=== PATIENT | female | born 1950 | race Caucasian/White ===

== ENCOUNTER 2019-11-27 14:54 | Outpatient (CLI) | payer MEDICARE, OTHER, SELFPAY ==
--- NOTE | ~2019-11-27 | MM_ITS ---
EXAMINATION: MM screening spencer BI w michael HISTORY: Screening mammogram, family history of breast cancer in her sister. TECHNIQUE: Craniocaudal and mediolateral oblique 3-D tomosynthesis images were obtained and synthetic 2-D images were generated. CAD analysis was submitted and interpreted. COMPARISON: 10/09/2018, 02/13/2017 BREAST PARENCHYMAL COMPOSITION: The breasts are almost entirely fatty., 01/13/2015 FINDINGS: There is no evidence of suspicious mass, calcification, or architectural distortion to sugg est malignancy in either breast. There has been no suspicious interval change. IMPRESSION: 1. No mammographic evidence of malignancy. 2. Recommend routine screening mammography in one year. BI-RADS Category 1: Negative Reviewed, dictated and finalized at location B.
== END 2019-11-27 14:55 | disposition home or self-care (01) ==
PROVIDERS: PCP Internal Medicine; Visit Provider Obstetrics & Gynecology
DX: Z12.31 Encounter for screening mammogram for malignant neoplasm of breast (principal)
CPT/HCPCS: 77063; 77067

== ENCOUNTER 2021-07-01 13:38 | Outpatient (CLI) | payer MEDICARE, OTHER, SELFPAY ==
--- NOTE | ~2021-07-01 | XR_ITS ---
XR hand RT min 3V 07/01/2021 14:47 Indication: Right hand pain Procedure: 3 views right hand Comparison: No prior studies for comparison. Findings: There is polyarticular osteoarthritis, most advanced at the first carpometacarpal joint. Th ere is an old ulnar styloid avulsion fracture. No acute fracture, subluxation or dislocation. No sign ificant soft tissue abnormality. Impression: 1: Moderate polyarticular osteoarthritis. Reviewed, dictated and finalized at location A. ICAL RESEARCH NURSE COORDINATOR Impression: 1: Moderate polyarticular osteoarthritis.
--- NOTE | ~2021-07-01 | XR_ITS ---
XR hand LT min 3V 07/01/2021 14:47 Indication: Left hand pain Procedure: 3 views left hand Comparison: No prior studies for comparison. Findings: There is polyarticular osteoarthritis involving the interphalangeal joints, first metacarpo phalangeal and carpometacarpal joints. There are also degenerative changes of the triscaphe joint. No fracture or traumatic malalignment. Osteopenia. Impression: 1: Moderate polyarticular osteoarthritis. Reviewed, dictated and finalized at location A. E MANAGEMENT ENGINEER Impression: 1: Moderate polyarticular osteoarthritis.
== END 2021-07-01 13:39 ==
PROVIDERS: Visit Provider Internal Medicine
DX: M19.041 Primary osteoarthritis, right hand (principal); M19.042 Primary osteoarthritis, left hand
CPT/HCPCS: 73130

== ENCOUNTER 2022-07-13 15:16 | Outpatient (CLI) | payer MEDICARE, OTHER, SELFPAY ==
--- NOTE | ~2022-07-13 | MM_ITS ---
EXAMINATION: MM screening spencer BI w michael HISTORY: Screening mammogram TECHNIQUE: Craniocaudal and mediolateral oblique 3-D tomosynthesis images were obtained and synthetic 2-D images were generated. CAD analysis was submitted and interpreted. COMPARISON: 11/27/2019, 10/09/2018, 02/13/2017 bilateral screening mammogram examinations BREAST PARENCHYMAL COMPOSITION: There are scattered areas of fibroglandular density. FINDINGS: There is no evidence of suspicious mass, calcification, or architectural distortion to sugg est malignancy in either breast. There has been no suspicious interval change. IMPRESSION: 1. No mammographic evidence of malignancy. 2. Recommend routine screening mammography in one year. BI-RADS Category 1: Negative Reviewed, dictated and finalized at location A.
== END 2022-07-13 15:17 | disposition home or self-care (01) ==
LOC: ANHIMG 15:19
PROVIDERS: PCP Internal Medicine; Visit Provider Obstetrics & Gynecology
DX: Z12.31 Encounter for screening mammogram for malignant neoplasm of breast (principal)
CPT/HCPCS: 77063; 77067

== ENCOUNTER 2023-07-10 10:40 | Outpatient (CLI) | payer OTHER, SELFPAY ==
--- NOTE | ~2023-07-10 | MR_ITS ---
EXAMINATION: MR shoulder LT wo con DATE: 07/10/2023 11:49 INDICATION: Left shoulder pain TECHNIQUE: Magnetic resonance imaging (MRI) of the left shoulder was performed without intravenous co ntrast. Sequences included axial PD-weighted FS FSE, coronal oblique PD-weighted FS FSE, coronal obli que T2-weighted FS FSE, sagittal PD-weighted FS FSE, and sagittal T1-weighted SE. COMPARISON: None. FINDINGS: Coracoacromial arch: The acromion undersurface is curved in morphology (type II). The coracoacromial ligament is normal. M ild acromioclavicular osteoarthritis. Rotator cuff: Moderate supraspinatus tendinopathy with full-thickness tear involving the the majority of the supras pinatus and anterior infraspinatus tendons which measures 2 cm AP and 3 cm medial to lateral. A small portion of the anterior most supraspinatus tendon and the posterior aspect of the infraspinatus tend on remain intact. The teres minor tendon is normal. Mild subscapularis tendinopathy without tear. The re is medial retraction of the supraspinatus muscle belly. Mild fatty atrophy of the supraspinatus an d infraspinatus muscle bellies. Biceps tendon, glenoid labrum and glenohumeral cartilage: Moderate tendinopathy of the intra-articular long head biceps tendon without discrete tear. Glenoid l abrum is normal. There is mild partial-thickness cartilage loss with smooth chondral surface at the a pex an inferomedial aspect of the humeral head. Fluid: Moderate-sized minimal joint effusion which extends through the full-thickness rotator cuff tear to i ndicate with fluid in the subacromial/subdeltoid bursa. Mild synovitis at the axillary recess. Small amount of fluid and mild tenosynovitis along the long head biceps tendon sheath. No loose osteochondr al bodies. Bones: Normal marrow signal with fracture or abnormal marrow replacing process. Mild cystic change at the ce phalad aspect of the intertubercular groove and lesser tuberosity. IMPRESSION: 1. Moderate tendinopathy and full-thickness tear of the majority the supraspinatus and anterior infra spinatus tendons. 2. Mild bicipital tenosynovitis with moderate tendinopathy without discrete tear of the intra-articul ar long head biceps tendon. 3. Mild humeral osteoarthritis with moderate minimal joint effusion. Reviewed, dictated and finalized at location B. IMPRESSION: 1. Moderate tendinopathy and full-thickness tear of the majority the supraspina tus and anterior infraspinatus tendons. 2. Mild bicipital tenosynovitis with moderate tendinopathy without discrete tea r of the intra-articular long head biceps tendon. 3. Mild humeral osteoarthritis with moderate minimal joint effusion.
== END 2023-07-10 10:41 | disposition home or self-care (01) ==
PROVIDERS: PCP Internal Medicine; Visit Provider Orthopaedic Surgery
DX: M75.22 Bicipital tendinitis, left shoulder (principal); S46.012A Strain of muscle(s) and tendon(s) of the rotator cuff of left shoulder, initial encounter; M19.012 Primary osteoarthritis, left shoulder; M25.412 Effusion, left shoulder
CPT/HCPCS: 73221

== ENCOUNTER 2023-10-24 13:31 | Outpatient (CLI) | payer MEDICARE, SELFPAY ==
--- NOTE | ~2023-10-24 | MM_ITS ---
EXAMINATION: MM screening spencer BI w michael HISTORY: Screening mammogram, family history of breast cancer in her sister. TECHNIQUE: Craniocaudal and mediolateral oblique 3-D tomosynthesis images were obtained and synthetic 2-D images were generated. CAD analysis was submitted and interpreted. COMPARISON: 07/13/2022, 11/27/2019, 10/09/2018 BREAST PARENCHYMAL COMPOSITION:Not Dense. There are scattered areas of fibroglandular density. FINDINGS: No suspicious mass, calcification, or architectural distortion are identified in either juliana ast to suggest malignancy. There has been no suspicious interval change. IMPRESSION: No mammographic evidence of malignancy. Recommend routine screening mammography in one year. BI-RADS Category 1: Negative Reviewed, dictated and finalized at location .
== END 2023-10-24 13:32 | disposition home or self-care (01) ==
PROVIDERS: PCP Internal Medicine; Visit Provider Obstetrics & Gynecology
DX: Z12.31 Encounter for screening mammogram for malignant neoplasm of breast (principal)
CPT/HCPCS: 77063; 77067

== ENCOUNTER 2024-03-04 00:43 | Day surgery (SDC) | payer MEDICARE, SELFPAY ==
[2024-02-21 11:34] VITALS: BMI 26.1
[2024-03-04 12:38] VITALS: BP 143/68; PULSE 59; RESP 20; TEMP 36.4; O2SAT 99; BMI 26.2
[2024-03-04] MEDS: LACTATED RINGERS 1,000 ML 150 ML IV CONT (12:40)
[2024-03-04 12:59] LABS: Glucose Point of Care 125 mg/dl (65-105)
--- NOTE | 2024-03-04 13:20 | P.HP_ITS ---
History of Present Illness History of Present Illness Consent: Risks, benefits, and alternatives have been discussed and questions answered. Patient agrees to proceed with procedure. Chief complaint: neoplasm screening Narrative: Kaci Staples is a 73 year old female here for screening colonoscopy, last one 12 years ago Review of Systems Review of Systems: All systems reviewed & are unremarkable except as noted in HPI and below PMFSH Past Medical History Medical History (Updated 03/04/24 @ 13:21 by Sav Ruiz MD) Colon cancer screening Depression Diabetes High cholesterol Hypertension Surgical History Surgical History (Updated 09/15/23 @ 07:50 by Leatha Anthony CMA) History of carpal tunnel release History of cholecystectomy History of knee surgery right knee arthroscopy x2 History of shoulder surgery right History of tonsillectomy Family History Family History (Updated 09/15/23 @ 07:51 by Leatha Anthony CMA) Other Cancer Social History Social History (Updated 09/15/23 @ 07:53 by Leatha Anthony CMA) Smoking status: Former smoker Tobacco type: cigarettes Alcohol intake: never Substance use: current Substance use type: marijuana Other substance usage details: gummies Do You Feel Safe in your Home?: Yes Lack of Transportation: No Lack of Food: Never True Current Housing: I Have Housing Concerned About Future Housing: No Difficulty Paying Gas/Electric Bills: No Difficulty Paying for Meds: No Currently Unemployed: No Education: Trade/Vocational Certificate Difficulty w/ Childcare or Family Care: No Living arrangements: with family Occupation/Education: retired Gender identity (if verbalized by the patient): Female Spiritual care concerns: No Meds Home Medications and Allergies Home Medications Medication Instructions Recorded Confirmed Type amlodipine 2.5 mg tablet 2.5 mg PO DAILY 09/15/23 03/04/24 History aripiprazole 5 mg tablet 5 mg PO DAILY 09/15/23 03/04/24 History atorvastatin 40 mg tablet 40 mg PO DAILY 09/15/23 03/04/24 History clonazepam 2 mg tablet 2 mg PO DAILY 09/15/23 03/04/24 History duloxetine 30 mg capsule,delayed 30 mg PO DAILY 09/15/23 03/04/24 History release famotidine 40 mg tablet (Pepcid) 40 mg PO DAILY #7 tabs 09/15/23 03/04/24 Rx glyburide 5 mg tablet 5 mg PO DAILY 09/15/23 03/04/24 History insulin detemir U-100 100 unit/mL 20 unit subcut QHS 09/15/23 03/04/24 History subcutaneous solution (Levemir U-100 Insulin) lisinopril 10 1 tablet PO DAILY 09/15/23 03/04/24 History mg-hydrochlorothiazide 12.5 mg tablet meloxicam 15 mg tablet 15 mg PO DAILY 09/15/23 03/04/24 History metformin 500 mg tablet,extended 500 mg PO DAILY 09/15/23 03/04/24 History release 24 hr methylprednisolone 4 mg tablets in See Rx Instructions PO PER PKG DIR 09/15/23 03/04/24 Rx a dose pack ([employer] (Aryan)) #1 ea sertraline 100 mg tablet 100 mg PO DAILY 09/15/23 03/04/24 History solifenacin 10 mg tablet (Vesicare) 10 mg PO DAILY 09/15/23 03/04/24 History Allergies Allergy/AdvReac Type Severity Reaction Status Date / Time meperidine [From Demerol] Allergy Severe pass out Verified 03/04/24 12:35 Vital Signs Vital Signs - 24 hr 03/04/24 12:38 Temperature 97.5 F L Pulse Rate 59 L Respiratory Rate 20 Blood Pressure 143/68 H Pulse Oximetry 99 Oxygen Delivery Room Air Exam Const: General: comfortable and no acute distress HENMT: Face/Nose/Sinus: Normal nares present Eyes: General: appearance normal, both eyes and all related structures Neck: Neck: no JVD Resp: Auscultation: clear to auscultation bilaterally Cardio: Rate: regular rate Rhythm: regular rhythm GI: Inspection: non-distended GI Palp: Yes Soft to palpation Skin: General skin exam: normal color Neuro: General: gait normal Speech: normal speech Extrem: General: normal to inspection Psych: Mental Status: mental status grossly normal Assessment and Plan Assessment and plan (1) Colon cancer screening: Code(s): Z12.11 - Encounter for screening for malignant neoplasm of colon Status: Acute Assessment and Plan: colonoscopy
--- NOTE | 2024-03-04 13:26 | WPDANESEPPF ---
Anes - Initial Pre Proc Eval Procedure: Operation Date: 03/04/24 13:30 Proposed Procedures p Screening Colonoscopy - Sav Ruiz MD Date/Time: 03/04/24 13:26 Surgeon: Sav Ruiz MD Pre Op Diagnosis: neoplasm screening Patient Data Age: 73 Gender: F Height: 1.6 m Weight: 67.2 kg Last Vital Signs Temp 36.4 C L 03/04/24 12:38 Pulse 59 L 03/04/24 12:38 Resp 20 03/04/24 12:38 BP 143/68 H 03/04/24 12:38 Pulse Ox 99 03/04/24 12:38 O2 Del Method Room Air 03/04/24 12:38 Allergies Allergy/AdvReac Type Severity Reaction Status Date / Time meperidine [From Demerol] Allergy Severe pass out Verified 03/04/24 12:35 Home Medications Medication Instructions Recorded Confirmed Type amlodipine 2.5 mg tablet 2.5 mg PO DAILY 09/15/23 03/04/24 History aripiprazole 5 mg tablet 5 mg PO DAILY 09/15/23 03/04/24 History atorvastatin 40 mg tablet 40 mg PO DAILY 09/15/23 03/04/24 History clonazepam 2 mg tablet 2 mg PO DAILY 09/15/23 03/04/24 History duloxetine 30 mg capsule,delayed 30 mg PO DAILY 09/15/23 03/04/24 History release famotidine 40 mg tablet (Pepcid) 40 mg PO DAILY #7 tabs 09/15/23 03/04/24 Rx glyburide 5 mg tablet 5 mg PO DAILY 09/15/23 03/04/24 History insulin detemir U-100 100 unit/mL 20 unit subcut QHS 09/15/23 03/04/24 History subcutaneous solution (Levemir U-100 Insulin) lisinopril 10 1 tablet PO DAILY 09/15/23 03/04/24 History mg-hydrochlorothiazide 12.5 mg tablet meloxicam 15 mg tablet 15 mg PO DAILY 09/15/23 03/04/24 History metformin 500 mg tablet,extended 500 mg PO DAILY 09/15/23 03/04/24 History release 24 hr methylprednisolone 4 mg tablets in See Rx Instructions PO PER PKG DIR 09/15/23 03/04/24 Rx a dose pack (Medrol (Aryan)) #1 ea sertraline 100 mg tablet 100 mg PO DAILY 09/15/23 03/04/24 History solifenacin 10 mg tablet (Vesicare) 10 mg PO DAILY 09/15/23 03/04/24 History Laboratory Tests 03/04/24 12:54 POC Capillary Glucose 125 H mg/dl (65-105) Patient hx anesthesia problems: none Family hx anesthesia problems: none Results Review: All pre-operative results and documents have been reviewed as part of the pre-operative evaluation. [facility] Past Medical History Medical History Colon cancer screening Depression Diabetes High cholesterol Hypertension Surgical History Surgical History History of carpal tunnel release History of cholecystectomy History of knee surgery right knee arthroscopy x2 History of shoulder surgery right History of tonsillectomy Family History Family History Other Cancer Social History Social History Smoking status: Former smoker Tobacco type: cigarettes Alcohol intake: never Substance use: current Substance use type: marijuana Other substance usage details: gummies Do You Feel Safe in your Home?: Yes Lack of Transportation: No Lack of Food: Never True Current Housing: I Have Housing Concerned About Future Housing: No Difficulty Paying Gas/Electric Bills: No Difficulty Paying for Meds: No Currently Unemployed: No Education: Trade/Vocational Certificate Difficulty w/ Childcare or Family Care: No Living arrangements: with family Occupation/Education: retired Gender identity (if verbalized by the patient): Female Spiritual care concerns: No Anes - Eval Final PreProcedure Day of Procedure 03/04/24 13:26 Patient weight: overweight Heart: regular rate and rhythm Lungs: clear to auscultation Airway: Mallampati scale class II Neurological: alert and oriented Last oral intake: >/= 8 hours ASA classification: III Emergent: no Anesthetic plan: proceed Anesthesia type and monitoring: general GIVS and standard monitoring Results Review: All pre-operative results and documents have been reviewed as part of the pre-operative evaluation. Informed Consent: The patient's anesthetic plan and its attendant risks and benefits were discussed with the patient/family/POA. Questions were solicited and answers provided to the satisfaction of the patient/family/POA.
[2024-03-04 13:47] VITALS: BP 102/52; PULSE 68; RESP 19; O2SAT 99
[2024-03-04 13:57] VITALS: BP 107/56; PULSE 59; RESP 15; O2SAT 100
[2024-03-04 14:07] VITALS: BP 127/47; PULSE 54; RESP 19; O2SAT 98
== END 2024-03-04 14:10 | disposition home or self-care (01) ==
PROVIDERS: PCP Internal Medicine; Visit Provider Internal Medicine Gastroenterology
PROC: 0DJD8ZZ Inspection of Lower Intestinal Tract, Via Natural or Artificial Opening Endoscopic (ICD-10-PCS; CPT 45378; principal; 2024-03-04 13:30)
DX: Z12.11 Encounter for screening for malignant neoplasm of colon (principal); D12.3 Benign neoplasm of transverse colon; D12.5 Benign neoplasm of sigmoid colon; K57.30 Diverticulosis of large intestine without perforation or abscess without bleeding; I10 Essential (primary) hypertension; E78.00 Pure hypercholesterolemia, unspecified; E11.9 Type 2 diabetes mellitus without complications; F32.A Depression, unspecified; F12.90 Cannabis use, unspecified, uncomplicated; Z79.4 Long term (current) use of insulin; Z79.85 Long-term (current) use of injectable non-insulin antidiabetic drugs; Z98.890 Other specified postprocedural states; Z90.49 Acquired absence of other specified parts of digestive tract; Z87.891 Personal history of nicotine dependence; Z80.9 Family history of malignant neoplasm, unspecified
CPT/HCPCS: 45385; 82948; 88305; J2704; J7120

== ENCOUNTER 2025-03-19 08:47 | Outpatient (CLI) | payer MEDICARE, SELFPAY ==
--- NOTE | ~2025-03-19 | MM_ITS ---
EXAMINATION: MM screening spencer BI w michael HISTORY: Screening TECHNIQUE: Craniocaudal and mediolateral oblique 3-D tomosynthesis images were obtained and synthetic 2-D images were generated. CAD analysis was submitted and interpreted. COMPARISON: Comparison to multiple prior studies sequentially, with oldest reviewed study dated 02/12/2016. BREAST PARENCHYMAL COMPOSITION: Not dense: There are scattered areas of fibroglandular density. FINDINGS: There is no evidence of suspicious mass, calcification, or architectural distortion to suggest malignancy in either breast. There has been no suspicious interval change. IMPRESSION: 1. No mammographic evidence of malignancy. 2. Recommend routine screening mammography in one year. BI-RADS Category 1: Negative Reviewed, dictated and finalized at location O. DER OPERATOR
== END 2025-03-19 08:48 | disposition home or self-care (01) ==
LOC: ANHFOHIMG 08:48
PROVIDERS: PCP Internal Medicine; Visit Provider Obstetrics & Gynecology
DX: Z12.31 Encounter for screening mammogram for malignant neoplasm of breast (principal)
CPT/HCPCS: 77063; 77067